=== PATIENT | male | born 1950 | race Caucasian/White ===

== ENCOUNTER 2022-10-04 15:27 | Emergency (ER) | payer MEDICARE, BC, SELFPAY ==
[2022-10-04] VITALS (22 sets, daily range): BP systolic 119–146; BP diastolic 72–107; PULSE 62–100; RESP 20; TEMP 37.6; O2SAT 95–99; BMI 28.3
--- NOTE | 2022-10-04 16:01 | CRLHL7_ITS ---
For Patients: As a result of the Century Cures Act, medical imaging exams and procedure reports are released immediately into your electronic medical record. You may view this report before your referring provider. If you have questions, please contact your health care provider. Indication: Chest pain Comparison: None available. Technique: PA and lateral views of the chest Findings: Mild hyperinflation and chronic interstitial change without evidence of dense consolidation, effusion or pneumothorax. There is minimal basilar atelectasis and parenchymal scar. Cardiac silhouette is mildly prominent with minimal aortic tortuosity. The bony thorax is grossly intact. Impression: Hyperinflation and chronic interstitial change without acute cardiopulmonary abnormality. Dictated by Jeremy Oleary MD @ 10/04/2022 5:02:22 PM (Electronically Signed)
--- NOTE | 2022-10-04 16:11 | ED.CHESTPAIN ---
HPI - Chest Pain General Date Seen: 10/04/22 <Emeka Rendon MD - Last Filed: 10/06/22 13:38> Chief Complaint: Chest Pain <Emeka Rendon MD - Last Filed: 10/06/22 13:38> Stated Complaint: chest pain, chill <Emeka Rendon MD - Last Filed: 10/06/22 13:38> Time Seen by Provider: 10/04/22 16:01 <Emeka Rendon MD - Last Filed: 10/06/22 13:38> Source: patient and family <Emeka Rendon MD - Last Filed: 10/06/22 13:38> Mode of arrival: ambulatory <Emeka Rendon MD - Last Filed: 10/06/22 13:38> Limitations: no limitations <Emeka Rendon MD - Last Filed: 10/06/22 13:38> History of Present Illness HPI narrative: Patient is a 9-year-old gentleman who presents here with his ambulatory for a chest discomfort, the chest discomfort is been for the last 3 weeks, he describes across his anterior chest, with no radiation anywhere else. He describes as pressure, and some pain. He feels very winded and shortness of breath and can walk only approximately 50 ft then will stop nap using a minute to 2 can walk further. He has noted he has had this in the past, but not nearly this bad. He told his today that he thinks he needs to go to the hospital, he has appointment to see Wilber Paredes MD to her next week. 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 Denies a past history of cardiac issues, no history of hypertension, smoking, diabetes, or hyperlipidemia. Not really been to a doctor last 15 years. Grandfather of an MD age 70. Nonsmoker lifetime, no alcohol. <Emeka Rendon MD - Last Filed: 10/06/22 13:38> MD complaint: chest pain and chest heaviness <Emeka Rendon MD - Last Filed: 10/06/22 13:38> Onset (ago): week(s) <Emeka Rendon MD - Last Filed: 10/06/22 13:38> Timing of current episode: episodic <Emeka Rendon MD - Last Filed: 10/06/22 13:38> Prior episodes: Yes <Emeka Rednon MD - Last Filed: 10/06/22 13:38> Onset: during exertion <Emeka Rendon MD - Last Filed: 10/06/22 13:38> Pain location: substernal, left chest and parasternal <Emeka Rendon MD - Last Filed: 10/06/22 13:38> Pain radiation: none <Emeka Rendon MD - Last Filed: 10/06/22 13:38> Severity: moderate <Emeka Rendon MD - Last Filed: 10/06/22 13:38> Quality: tightness and heaviness <Emeka Rendon MD - Last Filed: 10/06/22 13:38> Relieving factors: rest <Emeka Rendon MD - Last Filed: 10/06/22 13:38> Exacerbating factors: exertion <Emeka Rendon MD - Last Filed: 10/06/22 13:38> Treatment prior to arrival: none <Emeka Rendon MD - Last Filed: 10/06/22 13:38> Risk Factors Coronary artery disease risk factors: none <Emeka Rendon MD - Last Filed: 10/06/22 13:38> Thoracic aortic dissection risk factors: none <Emeka Rendon MD - Last Filed: 10/06/22 13:38> Related Data Home Medications: Previous Rx's Medication Instructions Recorded metoprolol succinate 25 mg 25 mg PO DAILY #30 tabs 10/04/22 tablet,extended release 24 hr nitroglycerin 0.4 mg sublingual 0.4 mg sublingual Q5-15M PRN chest 10/04/22 tablet pain #25 tabs <Emeka Rendon MD - Last Filed: 10/06/22 13:38> Allergies/Adverse Reactions: Allergies Allergy/AdvReac Type Severity Reaction Status Date / Time Penicillins Allergy Verified 10/04/22 15:35 <Emeka Rendon MD - Last Filed: 10/06/22 13:38> Review of Systems Status of ROS Reports: 10 or more systems reviewed and unremarkable except as noted in History and below <Emeka Rendon MD - Last Filed: 10/06/22 13:38> [facility] Social History: Social History Smoking Status: Never smoker Do you use any of these nicotine containing products: None Second hand tobacco smoke exposure: No How often do you have a drink containing alcohol: 2-4 times a month How many standard drinks containing alcohol do you have on a typical day: 1 or 2 How often do you have six or more drinks on one occasion: Never AUDIT-C Alcohol total score: 2 Non-prescribed substance use: denies use service: Yes <Emeka Rendon MD - Last Filed: 10/06/22 13:38> Exam Narrative Exam Narrative: Patient is seen in room 7 he appears to be in no apparent distress, pleasant along with his . Patient is speaking normally, no problem with slurring words, oriented x3. Head eyes ears nose and throat exam show equal pupils, no scleral icterus, extraocular muscles are normal, no facial droop, speech is normal, trachea normal and midline. Thyroid normal midline palpable not enlarged. Chest shows symmetrical rise bilaterally, normal auscultation with no wheezes, no increased work of breathing, no overt bruising or lesions seen, no tenderness is noted on auscultation. Heart sounds normal with no S3-S4 no murmurs clicks or gallops. Abdomen shows no obvious masses or hepatosplenomegaly, no organomegaly, bowel sounds are normal in all quadrants. No tenderness is noted also in all quadrants. Upper and lower extremities show normal power, normal range of motion, pulses are normal, sensations normal, fine motor movements are normal, pelvis is stable to rocking. Cervical spine shows normal range of motion, and palpably not tender. Thoracic spine shows normal range of motion, and palpably not tender, lumbar spine shows no tenderness to palpation percussion and is otherwise normal range of motion. Skin shows no rashes, petechiae or eccymosis. Deformity of the left 5th finger, consistent with the previous fracture osteoarthritis notable of all the MCPs of both hands. He has normal pulses in his DP and posterior tibial pie laterally notable, with absence of edema, and no negative Homans sign. <Emeka Rendon MD - Last Filed: 10/06/22 13:38> Const Vital Signs, click to edit/add: Vital Signs - 24 hr 10/04/22 15:36 10/04/22 15:53 10/04/22 16:00 Temperature 99.6 F Pulse Rate 100 93 Pulse Rate [Pulse Oximeter] 95 Respiratory Rate 20 Blood Pressure Blood Pressure [Left Upper Arm] 146/89 H Pulse Oximetry 97 97 Oxygen Delivery Method Room Air 10/04/22 16:15 10/04/22 16:30 10/04/22 16:32 Temperature Pulse Rate 92 81 81 Pulse Rate [Pulse Oximeter] Respiratory Rate Blood Pressure 132/81 Blood Pressure [Left Upper Arm] Pulse Oximetry 97 97 98 Oxygen Delivery Method 10/04/22 16:45 10/04/22 17:00 10/04/22 17:02 Temperature Pulse Rate 84 78 80 Pulse Rate [Pulse Oximeter] Respiratory Rate Blood Pressure 119/72 Blood Pressure [Left Upper Arm] Pulse Oximetry 96 96 96 Oxygen Delivery Method 10/04/22 17:15 10/04/22 17:30 10/04/22 17:32 Temperature Pulse Rate 66 81 75 Pulse Rate [Pulse Oximeter] Respiratory Rate Blood Pressure 128/73 Blood Pressure [Left Upper Arm] Pulse Oximetry 96 99 97 Oxygen Delivery Method 10/04/22 17:33 10/04/22 17:52 10/04/22 18:00 Temperature Pulse Rate 74 83 62 Pulse Rate [Pulse Oximeter] Respiratory Rate Blood Pressure Blood Pressure [Left Upper Arm] Pulse Oximetry 98 98 98 Oxygen Delivery Method 10/04/22 18:02 10/04/22 18:15 10/04/22 18:30 Temperature Pulse Rate 75 66 Pulse Rate [Pulse Oximeter] Respiratory Rate Blood Pressure 123/81 Blood Pressure [Left Upper Arm] Pulse Oximetry 98 98 Oxygen Delivery Method 10/04/22 18:32 10/04/22 18:45 10/04/22 19:00 Temperature Pulse Rate 66 81 74 Pulse Rate [Pulse Oximeter] Respiratory Rate Blood Pressure 128/72 Blood Pressure [Left Upper Arm] Pulse Oximetry 97 97 95 Oxygen Delivery Method 10/04/22 19:03 Temperature Pulse Rate 80 Pulse Rate [Pulse Oximeter] Respiratory Rate Blood Pressure 125/107 H Blood Pressure [Left Upper Arm] Pulse Oximetry 97 Oxygen Delivery Method <Emeka Rendon MD - Last Filed: 10/06/22 13:38> Vital Signs - 24 hr 10/04/22 15:36 10/04/22 15:53 10/04/22 16:00 Temperature 99.6 F Pulse Rate 100 93 Pulse Rate [Pulse Oximeter] 95 Respiratory Rate 20 Blood Pressure Blood Pressure [Left Upper Arm] 146/89 H Pulse Oximetry 97 97 Oxygen Delivery Method Room Air 10/04/22 16:15 10/04/22 16:30 10/04/22 16:32 Temperature Pulse Rate 92 81 81 Pulse Rate [Pulse Oximeter] Respiratory Rate Blood Pressure 132/81 Blood Pressure [Left Upper Arm] Pulse Oximetry 97 97 98 Oxygen Delivery Method 10/04/22 16:45 10/04/22 17:00 10/04/22 17:02 Temperature Pulse Rate 84 78 80 Pulse Rate [Pulse Oximeter] Respiratory Rate Blood Pressure 119/72 Blood Pressure [Left Upper Arm] Pulse Oximetry 96 96 96 Oxygen Delivery Method 10/04/22 17:15 10/04/22 17:30 10/04/22 17:32 Temperature Pulse Rate 66 81 75 Pulse Rate [Pulse Oximeter] Respiratory Rate Blood Pressure 128/73 Blood Pressure [Left Upper Arm] Pulse Oximetry 96 99 97 Oxygen Delivery Method 10/04/22 17:33 10/04/22 17:52 10/04/22 18:00 Temperature Pulse Rate 74 83 62 Pulse Rate [Pulse Oximeter] Respiratory Rate Blood Pressure Blood Pressure [Left Upper Arm] Pulse Oximetry 98 98 98 Oxygen Delivery Method 10/04/22 18:02 10/04/22 18:15 10/04/22 18:30 Temperature Pulse Rate 75 66 Pulse Rate [Pulse Oximeter] Respiratory Rate Blood Pressure 123/81 Blood Pressure [Left Upper Arm] Pulse Oximetry 98 98 Oxygen Delivery Method 10/04/22 18:32 10/04/22 18:45 10/04/22 19:00 Temperature Pulse Rate 66 81 74 Pulse Rate [Pulse Oximeter] Respiratory Rate Blood Pressure 128/72 Blood Pressure [Left Upper Arm] Pulse Oximetry 97 97 95 Oxygen Delivery Method 10/04/22 19:03 Temperature Pulse Rate 80 Pulse Rate [Pulse Oximeter] Respiratory Rate Blood Pressure 125/107 H Blood Pressure [Left Upper Arm] Pulse Oximetry 97 Oxygen Delivery Method <Destiny Swenson MD - Last Filed: 10/04/22 20:51> Documenting provider has reviewed patient's vital signs: yes <Emeka Rendon MD - Last Filed: 10/06/22 13:38> Course Reevaluation(s) Reevaluation #1: Reviewed with patient that his D-dimer is mildly elevated. When he did have the chest pain, he would feel short of breath. He is currently asymptomatic. Can not really tell me when the last time he had the pain was at this point. Reviewed entities such as dissection and aneurysms, pulmonary emboli. We will be doing a chest CT PE protocol next. Will do a follow-up troponin and likely talk to Cardiology once I have my chest CT back. <Destiny Swenson MD - Last Filed: 10/04/22 20:51> Time: 17:23 <Destiny Swenson MD - Last Filed: 10/04/22 20:51> Reevaluation #2: Reviewed patient's chest CT PE protocol with him. There is no pulmonary emboli, no acute intrathoracic abnormality. Unfortunately, there is an incompletely visualized right kidney and they do see hydronephrosis. Patient is going to have a CT of his abdomen, will collect urinalysis. We will not be able to do with contrast but given he has not had any medical care for years, do feel that is appropriate that we work this up further here. His troponin has been normal, there other abnormalities seen with his labs that may point to a different direction rather than cardiac disease. I do agree with Dr. Braxton though that the history really sounds like it could be angina. <Destiny Swenson MD - Last Filed: 10/04/22 20:51> Time: 18:41 <Destiny Swenson MD - Last Filed: 10/04/22 20:51> Reevaluation #3: PVR is only 1ml, no retention found. Awaiting to talk to cardiology regarding this patient. Will be reviewing CT abdomen with them as well. Reviewed that there is dilation of the right ureter, could certainly be a chronic finding, can be further worked up outpatient if felt necessary. His kidney function and urinalysis are not concerning at this time. As far as his chest symptoms, reviewed that with the lack of Cardiology hospital beds, his stability of his troponins, it is not likely that we will find hospitalization. I am going to start him on metoprolol XL 25 mg, give a dose here tonight. He understands that I am going to talk to Cardiology, come up with a plan for outpatient. We can schedule a stress test and would likely do a Lexiscan walking. Will review this with Cardiology. They state that they have an appointment with Dr. Nuñez this coming Monday at 4:00 p.m.. There are advised to keep that appointment. <Destiny Swenson MD - Last Filed: 10/04/22 20:51> Time: 20:25 <Destiny Swenson MD - Last Filed: 10/04/22 20:51> Consultations Consultation #1: Has spoken with Dr. Rodgers oral Cardiology from [facility] [place]. Reviewed the case. He recommended metoprolol and was in agreement with that. He recommended sublingual nitroglycerin in lieu of Imdur. He recommended doing a nuclear treadmill. I did order this. Patient will be discharged to home for further outpatient evaluation and management as there is no capacity for inpatient hospitalization. <Destiny Swenson MD - Last Filed: 10/04/22 20:51> Time: 20:50 <Destiny Swenson MD - Last Filed: 10/04/22 20:51> Vital Signs Vital signs: Initial Vital Signs Temperature 99.6 F 10/04/22 15:36 Temperature Source Temporal Artery Scan 10/04/22 15:36 Pulse Rate 95 10/04/22 15:36 Pulse Rhythm 10/04/22 15:36 Respiratory Rate 20 10/04/22 15:36 Blood Pressure 146/89 H 10/04/22 15:36 Blood Pressure Mean 108 10/04/22 15:36 Blood Pressure Position Supine 10/04/22 15:36 Oxygen Delivery Method 10/04/22 15:36 Vital Signs Temperature 99.6 F 10/04/22 15:36 Pulse Rate 95 10/04/22 15:36 Respiratory Rate 20 10/04/22 15:36 Blood Pressure 146/89 H 10/04/22 15:36 Oxygen Delivery Method 10/04/22 15:36 Temperature 99.6 F 10/04/22 15:36 Pulse Rate 80 10/04/22 19:03 Respiratory Rate 20 10/04/22 15:36 Blood Pressure 125/107 H 10/04/22 19:03 Pulse Oximetry 97 10/04/22 19:03 Oxygen Delivery Method 10/04/22 15:36 <Emeka Rendon MD - Last Filed: 10/06/22 13:38> Initial Vital Signs Temperature 99.6 F 10/04/22 15:36 Temperature Source Temporal Artery Scan 10/04/22 15:36 Pulse Rate 95 10/04/22 15:36 Pulse Rhythm 10/04/22 15:36 Respiratory Rate 20 10/04/22 15:36 Blood Pressure 146/89 H 10/04/22 15:36 Blood Pressure Mean 108 10/04/22 15:36 Blood Pressure Position Supine 10/04/22 15:36 Oxygen Delivery Method 10/04/22 15:36 Vital Signs Temperature 99.6 F 10/04/22 15:36 Pulse Rate 95 10/04/22 15:36 Respiratory Rate 20 10/04/22 15:36 Blood Pressure 146/89 H 10/04/22 15:36 Oxygen Delivery Method 10/04/22 15:36 Temperature 99.6 F 10/04/22 15:36 Pulse Rate 80 10/04/22 19:03 Respiratory Rate 20 10/04/22 15:36 Blood Pressure 125/107 H 10/04/22 19:03 Pulse Oximetry 97 10/04/22 19:03 Oxygen Delivery Method 10/04/22 15:36 <Destiny Swenson MD - Last Filed: 10/04/22 20:51> MDM - Chest Pain MDM Narrative Medical decision making narrative: During the evaluation of this patient I considered multiple differential diagnosis is. The life-threatening differential diagnosis include coronary disease/MD, pulmonary embolism, pneumothorax, pneumonia, and aortic dissection. Other differential diagnosis included but were not limited to pericarditis, myocarditis, chest wall pain, GERD, esophageal rupture, rib fracture contusion, pleurisy, as well as other etiologies. I discussed with him that this story is consistent with angina at least 2 more likely unstable angina, we should do a workup for this and he is in agreement, I will have him see the oncoming ER physician <Emeka Rendon MD - Last Filed: 10/06/22 13:38> Differential Diagnosis Differential diagnosis: Likely stable angina, unstable angina pectoris, atypical chest pain and chest pain <Emeka Rendon MD - Last Filed: 10/06/22 13:38> Lab Data Attestation: I reviewed the patient's lab results. <Destiny Swenson MD - Last Filed: 10/04/22 20:51> Labs: Lab Results 10/04/22 10/04/22 10/04/22 Range/Units 16:01 16:15 16:15 WBC 10.42 (4.50-11.00) K/uL RBC 4.35 (4.30-5.90) m/uL Hgb 12.5 L (13.5-17.5) gm/dL Hct 36.9 L (37.0-53.0) % MCV 85 (80-100) fL MCH 29 (26-34) pg MCHC 34 (32-36) gm/dL RDW Coeff of Maik 12.6 (11.5-15.5) % Plt Count 284 (140-440) K/uL Neut % (Auto) 76.5 H (42.0-72.0) % Lymph % (Auto) 14.2 L (20-44) % [place] % (Auto) 7.6 (0.0-11.0) % Eos % (Auto) 1.2 (0.0-7.0) % Baso % (Auto) 0.2 (0.0-3.0) % Neut # (Auto) 8.00 H (1.7-7.0) K/uL Lymph # (Auto) 1.50 (0.90-2.90) K/uL [place] # (Auto) 0.80 (0.00-0.90) K/UL Eos # (Auto) 0.13 (0.00-0.50) K/uL Baso # (Auto) 0.02 (0.00-0.30) K/uL INR 1.14 H (0.91-1.10) APTT 38 H (23-33) Seconds D-Dimer Quant (PE/DVT) 0.80 H (0.00-0.50) ug/ml Sodium (135-149) mmol/L Potassium (3.6-5.1) mmol/L Chloride (96-114) mmol/L Carbon Dioxide (20-32) mmol/L BUN (7-30) mg/dL Creatinine (0.5-1.5) mg/dL Estimated Creat Clear Estimated GFR ml/min Glucose (60-115) mg/dL Calcium (8.4-10.6) mg/dL Total Bilirubin (0.1-1.5) mg/dL AST (12-35) U/L ALT (4-50) U/L Alkaline Phosphatase (40-150) U/L Troponin I (0.01-0.04) ng/mL NT-Pro-B Natriuret Pep pg/mL Total Protein (6.0-8.3) g/dL Albumin (3.3-5.0) g/dL Urine Color (Yellow) Urine Appearance (Clear) Urine pH (5.0-8.5) Ur Specific [place] (1.000-1.030) Urine Protein (Negative) Urine Glucose (UA) (Negative) Urine Ketones (Negative) Urine Blood (Negative) Urine Nitrite (Negative) Urine Bilirubin (Negative) Urine Urobilinogen (0.2-1.0) Ur Leukocyte Esterase (Negative) Urine RBC (0-2) Urine WBC (0-5) Ur Squamous Epith Cells (None-Few) Urine Bacteria (None) SARS-CoV-2 (PCR) Negative SARS-CoV-2 (Negative) Influenza Type A (PCR) Negative PCR FLU A (Negative) Influenza Type B (PCR) Negative PCR FLU B (Negative) RSV (PCR) Negative PCR RSV (Negative) 10/04/22 10/04/22 10/04/22 Range/Units 16:15 19:04 19:15 WBC (4.50-11.00) K/uL RBC (4.30-5.90) m/uL Hgb (13.5-17.5) gm/dL Hct (37.0-53.0) % MCV (80-100) fL MCH (26-34) pg MCHC (32-36) gm/dL RDW Coeff of Maik (11.5-15.5) % Plt Count (140-440) K/uL Neut % (Auto) (42.0-72.0) % Lymph % (Auto) (20-44) % [place] % (Auto) (0.0-11.0) % Eos % (Auto) (0.0-7.0) % Baso % (Auto) (0.0-3.0) % Neut # (Auto) (1.7-7.0) K/uL Lymph # (Auto) (0.90-2.90) K/uL [place] # (Auto) (0.00-0.90) K/UL Eos # (Auto) (0.00-0.50) K/uL Baso # (Auto) (0.00-0.30) K/uL INR (0.91-1.10) APTT (23-33) Seconds D-Dimer Quant (PE/DVT) (0.00-0.50) ug/ml Sodium 137 (135-149) mmol/L Potassium 3.9 (3.6-5.1) mmol/L Chloride 105 (96-114) mmol/L Carbon Dioxide 26 (20-32) mmol/L BUN 14 (7-30) mg/dL Creatinine 0.8 (0.5-1.5) mg/dL Estimated Creat Clear 59.79 Estimated GFR 95 ml/min Glucose 116 H (60-115) mg/dL Calcium 8.2 L (8.4-10.6) mg/dL Total Bilirubin 0.9 (0.1-1.5) mg/dL AST 30 (12-35) U/L ALT 28 (4-50) U/L Alkaline Phosphatase 63 (40-150) U/L Troponin I < 0.01 L < 0.01 L (0.01-0.04) ng/mL NT-Pro-B Natriuret Pep 1650 pg/mL Total Protein 6.5 (6.0-8.3) g/dL Albumin 3.6 (3.3-5.0) g/dL Urine Color Yellow (Yellow) Urine Appearance Clear (Clear) Urine pH 5.5 (5.0-8.5) Ur Specific [place] 1.010 (1.000-1.030) Urine Protein Negative (Negative) Urine Glucose (UA) Negative (Negative) Urine Ketones Negative (Negative) Urine Blood Negative (Negative) Urine Nitrite Negative (Negative) Urine Bilirubin Negative (Negative) Urine Urobilinogen 0.2 (0.2-1.0) Ur Leukocyte Esterase Trace A (Negative) Urine RBC 2-5 A (0-2) Urine WBC 10-25 A (0-5) Ur Squamous Epith Cells None (None-Few) Urine Bacteria None (None) SARS-CoV-2 (PCR) (Negative) Influenza Type A (PCR) (Negative) Influenza Type B (PCR) (Negative) RSV (PCR) (Negative) <Emeka Rendon MD - Last Filed: 10/06/22 13:38> Lab Results 10/04/22 10/04/22 10/04/22 Range/Units 16:01 16:15 16:15 WBC 10.42 (4.50-11.00) K/uL RBC 4.35 (4.30-5.90) m/uL Hgb 12.5 L (13.5-17.5) gm/dL Hct 36.9 L (37.0-53.0) % MCV 85 (80-100) fL MCH 29 (26-34) pg MCHC 34 (32-36) gm/dL RDW Coeff of Maik 12.6 (11.5-15.5) % Plt Count 284 (140-440) K/uL Neut % (Auto) 76.5 H (42.0-72.0) % Lymph % (Auto) 14.2 L (20-44) % [place] % (Auto) 7.6 (0.0-11.0) % Eos % (Auto) 1.2 (0.0-7.0) % Baso % (Auto) 0.2 (0.0-3.0) % Neut # (Auto) 8.00 H (1.7-7.0) K/uL Lymph # (Auto) 1.50 (0.90-2.90) K/uL [place] # (Auto) 0.80 (0.00-0.90) K/UL Eos # (Auto) 0.13 (0.00-0.50) K/uL Baso # (Auto) 0.02 (0.00-0.30) K/uL INR 1.14 H (0.91-1.10) APTT 38 H (23-33) Seconds D-Dimer Quant (PE/DVT) 0.80 H (0.00-0.50) ug/ml Sodium (135-149) mmol/L Potassium (3.6-5.1) mmol/L Chloride (96-114) mmol/L Carbon Dioxide (20-32) mmol/L BUN (7-30) mg/dL Creatinine (0.5-1.5) mg/dL Estimated Creat Clear Estimated GFR ml/min Glucose (60-115) mg/dL Calcium (8.4-10.6) mg/dL Total Bilirubin (0.1-1.5) mg/dL AST (12-35) U/L ALT (4-50) U/L Alkaline Phosphatase (40-150) U/L Troponin I (0.01-0.04) ng/mL NT-Pro-B Natriuret Pep pg/mL Total Protein (6.0-8.3) g/dL Albumin (3.3-5.0) g/dL Urine Color (Yellow) Urine Appearance (Clear) Urine pH (5.0-8.5) Ur Specific [place] (1.000-1.030) Urine Protein (Negative) Urine Glucose (UA) (Negative) Urine Ketones (Negative) Urine Blood (Negative) Urine Nitrite (Negative) Urine Bilirubin (Negative) Urine Urobilinogen (0.2-1.0) Ur Leukocyte Esterase (Negative) Urine RBC (0-2) Urine WBC (0-5) Ur Squamous Epith Cells (None-Few) Urine Bacteria (None) SARS-CoV-2 (PCR) Negative SARS-CoV-2 (Negative) Influenza Type A (PCR) Negative PCR FLU A (Negative) Influenza Type B (PCR) Negative PCR FLU B (Negative) RSV (PCR) Negative PCR RSV (Negative) 10/04/22 10/04/22 10/04/22 Range/Units 16:15 19:04 19:15 WBC (4.50-11.00) K/uL RBC (4.30-5.90) m/uL Hgb (13.5-17.5) gm/dL Hct (37.0-53.0) % MCV (80-100) fL MCH (26-34) pg MCHC (32-36) gm/dL RDW Coeff of Maik (11.5-15.5) % Plt Count (140-440) K/uL Neut % (Auto) (42.0-72.0) % Lymph % (Auto) (20-44) % [place] % (Auto) (0.0-11.0) % Eos % (Auto) (0.0-7.0) % Baso % (Auto) (0.0-3.0) % Neut # (Auto) (1.7-7.0) K/uL Lymph # (Auto) (0.90-2.90) K/uL [place] # (Auto) (0.00-0.90) K/UL Eos # (Auto) (0.00-0.50) K/uL Baso # (Auto) (0.00-0.30) K/uL INR (0.91-1.10) APTT (23-33) Seconds D-Dimer Quant (PE/DVT) (0.00-0.50) ug/ml Sodium 137 (135-149) mmol/L Potassium 3.9 (3.6-5.1) mmol/L Chloride 105 (96-114) mmol/L Carbon Dioxide 26 (20-32) mmol/L BUN 14 (7-30) mg/dL Creatinine 0.8 (0.5-1.5) mg/dL Estimated Creat Clear 59.79 Estimated GFR 95 ml/min Glucose 116 H (60-115) mg/dL Calcium 8.2 L (8.4-10.6) mg/dL Total Bilirubin 0.9 (0.1-1.5) mg/dL AST 30 (12-35) U/L ALT 28 (4-50) U/L Alkaline Phosphatase 63 (40-150) U/L Troponin I < 0.01 L < 0.01 L (0.01-0.04) ng/mL NT-Pro-B Natriuret Pep 1650 pg/mL Total Protein 6.5 (6.0-8.3) g/dL Albumin 3.6 (3.3-5.0) g/dL Urine Color Yellow (Yellow) Urine Appearance Clear (Clear) Urine pH 5.5 (5.0-8.5) Ur Specific [place] 1.010 (1.000-1.030) Urine Protein Negative (Negative) Urine Glucose (UA) Negative (Negative) Urine Ketones Negative (Negative) Urine Blood Negative (Negative) Urine Nitrite Negative (Negative) Urine Bilirubin Negative (Negative) Urine Urobilinogen 0.2 (0.2-1.0) Ur Leukocyte Esterase Trace A (Negative) Urine RBC 2-5 A (0-2) Urine WBC 10-25 A (0-5) Ur Squamous Epith Cells None (None-Few) Urine Bacteria None (None) SARS-CoV-2 (PCR) (Negative) Influenza Type A (PCR) (Negative) Influenza Type B (PCR) (Negative) RSV (PCR) (Negative) <Destiny Swenson MD - Last Filed: 10/04/22 20:51> Imaging Data Chest x-ray: Attestation: I have reviewed the pertinent imaging results. <Destiny Swenson MD - Last Filed: 10/04/22 20:51> My impression: Do not appreciate any acute infiltrate, no acute pathology on my preliminary review. Await Radiology over-read. <Destiny Swenson MD - Last Filed: 10/04/22 20:51> Radiologist's impression: Patient: HITESH RIGGINS Facility:?[facility] Patient ID:?[id number] Site Patient ID:?[id number]. Site :?[id number] Study:?XRay Chest 2 VIEW-10/04/2022 4:44:26 PM Ordering Physician:Nino Hendrickson Final Report: Indication: Chest pain Comparison: None available. Technique: PA and lateral views of the chest Findings: Mild hyperinflation and chronic interstitial change without evidence of dense consolidation, effusion or pneumothorax. There is minimal basilar atelectasis and parenchymal scar. Cardiac silhouette is mildly prominent with minimal aortic tortuosity. The bony thorax is grossly intact. Impression: Hyperinflation and chronic interstitial change without acute cardiopulmonary abnormality. Dictated by Jeremy Oleary MD @ 10/04/2022 5:02:22 PM (Electronic Signature) <Destiny Swenson MD - Last Filed: 10/04/22 20:51> CT scan - chest: Attestation: I have reviewed the pertinent imaging results. <Destiny Swenson MD - Last Filed: 10/04/22 20:51> Radiologist's impression: Patient: HITESH RIGGINS Facility:?[facility] Patient ID:?[id number] Site Patient ID:?[id number]. Site :?[id number] Study:?CT Chest Angio PE PROTOCOL-10/04/2022 5:59:27 PM Ordering Physician:Angeline Dixon Final Report: INDICATION: Chest pain, shortness of breath. TECHNIQUE: CT chest PE was acquired with 95 cc Isovue 370 IV contrast. COMPARISON: Chest radiographs 10/04/2022. FINDINGS: Heart and vasculature: Contrast opacification of the pulmonary arterial tree is adequate. No sign of pulmonary embolism. Heart size is normal. Thoracic aorta and pulmonary artery are normal in caliber. Minimal coronary artery calcifications. Lungs and pleura: Mild osteophyte related fibrosis in the medial right lower lobe. Few linear parenchymal bands, likely representing subsegmental atelectasis/scarring. No suspicious nodules or infiltrates. No pleural effusions, pleural thickening, or pneumothorax. Lymph nodes/mediastinum: No mediastinal, hilar, or axillary adenopathy. Thyroid gland is unremarkable. 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 Chest wall: No masses. Upper abdomen: Partially visualized right hydronephrosis. Bones: Degenerative changes of the spine. IMPRESSION: 1. No evidence of pulmonary embolism or acute intrathoracic abnormality. 2. Partially visualized right hydronephrosis. Please note that all CT scans at this facility use dose modulation, iterative reconstruction, and/or weight-based dosing when appropriate to reduce radiation dose to as low as reasonably achievable. Dictated by Jimi Pimentel MD @ 10/04/2022 6:28:33 PM (Electronic Signature) <Destiny Swenson MD - Last Filed: 10/04/22 20:51> CT scan - abdomen: Attestation: I have reviewed the pertinent imaging results. <Destiny Swenson MD - Last Filed: 10/04/22 20:51> My impression: See enlarged right ureter on the CT. Will await Radiology over-read. <Destiny Swenson MD - Last Filed: 10/04/22 20:51> Radiologist's impression: Patient: HITESH RIGGINS Facility:?[facility] Patient ID:?[id number] Site Patient ID:?[id number]. Site :?[id number] Study:?CT Abdomen/Pelvis W/O CONTRAST-10/04/2022 7:13:00 PM Ordering Physician:Angeline Dixon Final Report: INDICATION: Right hydronephrosis seen on chest CT. TECHNIQUE: CT abdomen and pelvis without contrast. COMPARISON: None. FINDINGS: Lower chest: Scattered atelectasis. Similar prominent cystic structure in the retrocrural space Liver: Normal in size and attenuation. No suspicious masses. Gallbladder and bile ducts: No stones or inflammation. No biliary dilatation. Pancreas: Unremarkable. No mass or inflammation. Spleen: Normal in size. No masses. Adrenal glands: Normal in size. No nodules. Kidneys: Moderate to severe right-sided hydroureteronephrosis with tortuous course of the ureter without definite obstructing stone. Some narrowing of the right UVJ (series 2/image 101). Multiple left-sided renal sinus cysts. GI tract: Unremarkable. Normal in caliber. No sign of mass or inflammation. Normal appendix. Vasculature: Abdominal aorta is normal in caliber. Lymph nodes: No lymphadenopathy. Peritoneum/Abdominal Wall: Small fat containing umbilical hernia. No sign of mass or infiltration. No free air or significant free fluid. Pelvis: Moderately distended bladder with contrast. Bones: Degenerative changes. Bilateral L5 pars defects with minimal anterolisthesis of L5 on S1. IMPRESSION: Moderate to severe right-sided hydroureteronephrosis with tortuous course of the right ureter to the level of the UVJ without obstructing stone or mass. Some narrowing of the right UVJ which could suggest stricture, although vesicoureteral reflux not excluded. In the absence of acute kidney injury and pain, this could potentially be a chronic finding. Recommend correlation with renal function test. Please note that all CT scans at this facility use dose modulation, iterative reconstruction, and/or weight-based dosing when appropriate to reduce radiation dose to as low as reasonably achievable. Dictated by Zhao Garcia MD @ 10/04/2022 7:45:40 PM (Electronic Signature) <Destiny Swenson MD - Last Filed: 10/04/22 20:51> ECG Data Attestation: I personally reviewed and interpreted this ECG as follows: (Sinus rhythm with PVCs, 100 beats per minute. No definitive ischemia on my review.) <Destiny Swenson MD - Last Filed: 10/04/22 20:51> ECG interpretation date: 10/04/22 <Destiny Swenson MD - Last Filed: 10/04/22 20:51> ECG interpretation time: 17:20 <Destiny Swenson MD - Last Filed: 10/04/22 20:51> Prior ECG tracings: not available for review <Destiny Swenson MD - Last Filed: 10/04/22 20:51> Interpretation: Followup EKG timed 7:44 p.m. shows normal sinus rhythm, 80 beats per minute. No acute ischemic change. <Destiny Swenson MD - Last Filed: 10/04/22 20:51> Discharge Plan Discharge Clinical Impression: Hydronephrosis of right kidney, Hydroureter on right, Chest pain <Emeka Rendon MD - Last Filed: 10/06/22 13:38> Patient Disposition: Home, Self-Care <Emeka Renodn MD - Last Filed: 10/06/22 13:38> Condition: Stable <Emeka Rendon MD - Last Filed: 10/06/22 13:38> Instructions: Coronary Artery Disease (DC), Chest Pain (ED) <Emeka Rendon MD - Last Filed: 10/06/22 13:38> Additional Instructions: Need to take an 81 mg aspirin daily. You did get aspirin while you are in the ER, next dose should be given tomorrow. Start taking metoprolol XL 25 mg daily, next dose tomorrow night. We are prescribing sublingual nitroglycerin 0.4 mg to be taken under your tongue should you have chest pain. Please take this sitting down as it can drop people's blood pressure. If you are continuing to have ongoing chest pain, need to return to the ER for further evaluation. Certainly if you are having increasing symptoms of chest pain, difficulty breathing, shortness of breath or sense of rapid heart rate, recommend ER evaluation. Otherwise please keep your appointment in clinic for next week. It is fine to use Tylenol as you have been with these medicines. I have ordered a stress test and you will be contacted when this is approved, it will be scheduled after approval is done. I would recommend trying to minimize physical exertion until you have had further workup for this chest pain which is concerning for angina. <Emeka Rendon MD - Last Filed: 10/06/22 13:38> Activity Level: Activity as Tolerated <Emeka Rendon MD - Last Filed: 10/06/22 13:38> Activity as Tolerated <Destiny Swenson MD - Last Filed: 10/04/22 20:51> Discharge Diet: Regular <Emeka Rendon MD - Last Filed: 10/06/22 13:38> Regular <Destiny Swenson MD - Last Filed: 10/04/22 20:51> Prescriptions: New metoprolol succinate 25 mg tablet extended release 24 hr 25 mg PO DAILY Qty: 30 1RF nitroglycerin 0.4 mg tablet, sublingual 0.4 mg sublingual Q5-15M PRN (Reason: chest pain) Qty: 25 1RF Rx Instructions: do not exceed 3 doses per episode <Emeka Rendon MD - Last Filed: 10/06/22 13:38> Follow Up/Referrals: Thomas Nuñez MD [Primary Care Provider] - <Emeka Rendon MD - Last Filed: 10/06/22 13:38> Stand Alone Forms: [facility] Info Instructions <Emeka Rendon MD - Last Filed: 10/06/22 13:38>
[2022-10-04 16:24] LABS: Basophils Absolute Auto 0.02 K/uL (0.00-0.30); Basophils Percent Auto 0.2 % (0.0-3.0); Eosinophils Absolute Auto 0.13 K/uL (0.00-0.50); Eosinophils Percent Auto 1.2 % (0.0-7.0); Hematocrit 36.9 % (37.0-53.0); Hemoglobin* 12.5 gm/dL (13.5-17.5); Immature Granulocytes Abs Auto 0.03 K/uL (0.00-0.30); Immature Granulocytes Pct Auto 0.3 %; Lymphocytes Percent Auto 14.2 % (20-44); Mean Corpuscular HGB Conc 34 gm/dL (32-36); Mean Corpuscular Hemoglobin 29 pg (26-34); Mean Corpuscular Volume 85 fL (80-100); Monocytes Percent Auto 7.6 % (0.0-11.0); Neutrophils Percent Auto 76.5 % (42.0-72.0); Platelet Count* 284 K/uL (140-440); RDW Coefficient of Variation % 12.6 % (11.5-15.5); Red Blood Count 4.35 m/uL (4.30-5.90); White Blood Count* 10.42 K/uL (4.50-11.00)
[2022-10-04] MEDS: ASPIRIN 81 MG TAB.CHEW 324 MG PO (16:26)
[2022-10-04 16:27] LABS: Slide Review Reflex No
[2022-10-04 16:42] LABS: INR 1.14 (0.91-1.10); Prothrombin Time 15.3 Seconds
[2022-10-04 16:43] LABS: Partial Thromboplastin Time* 38 Seconds (23-33)
[2022-10-04 16:51] LABS: NT Pro B Type NatriureticPept* 1650 pg/mL
[2022-10-04 16:54] LABS: Troponin I* < 0.01 ng/mL (0.01-0.04)
[2022-10-04 16:59] LABS: Albumin* 3.6 g/dL (3.3-5.0); Chloride* 105 mmol/L (96-114); Potassium* 3.9 mmol/L (3.6-5.1); Sodium* 137 mmol/L (135-149)
[2022-10-04 17:00] LABS: PCR FLU A Negative PCR FLU A (Negative); PCR FLU B Negative PCR FLU B (Negative); PCR RSV Negative PCR RSV (Negative)
[2022-10-04 17:01] LABS: SARS PCR* Negative SARS-CoV-2 (Negative)
[2022-10-04 17:02] LABS: Alanine Aminotransferase* 28 U/L (4-50); Alkaline Phosphatase* 63 U/L (40-150); Aspartate Amino Transferase* 30 U/L (12-35); Bilirubin Total* 0.9 mg/dL (0.1-1.5); Blood Urea Nitrogen* 14 mg/dL (7-30); Carbon Dioxide* 26 mmol/L (20-32); Creatinine* 0.8 mg/dL (0.5-1.5); Est. Creatinine Clearance* 59.79; Estimated Glomerular Filt Rate 95 ml/min; Glucose* 116 mg/dL (60-115); Total Protein* 6.5 g/dL (6.0-8.3)
[2022-10-04 17:03] LABS: Calcium* 8.2 mg/dL (8.4-10.6)
--- NOTE | 2022-10-04 17:25 | CRLHL7_ITS ---
For Patients: As a result of the Century Cures Act, medical imaging exams and procedure reports are released immediately into your electronic medical record. You may view this report before your referring provider. If you have questions, please contact your health care provider. INDICATION: Chest pain, shortness of breath. TECHNIQUE: CT chest PE was acquired with 95 cc Isovue 370 IV contrast. COMPARISON: Chest radiographs 10/04/2022. FINDINGS: Heart and vasculature: Contrast opacification of the pulmonary arterial tree is adequate. No sign of pulmonary embolism. Heart size is normal. Thoracic aorta and pulmonary artery are normal in caliber. Minimal coronary artery calcifications. Lungs and pleura: Mild osteophyte related fibrosis in the medial right lower lobe. Few linear parenchymal bands, likely representing subsegmental atelectasis/scarring. No suspicious nodules or infiltrates. No pleural effusions, pleural thickening, or pneumothorax. Lymph nodes/mediastinum: No mediastinal, hilar, or axillary adenopathy. Thyroid gland is unremarkable. 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 Chest wall: No masses. Upper abdomen: Partially visualized right hydronephrosis. Bones: Degenerative changes of the spine. IMPRESSION: 1. No evidence of pulmonary embolism or acute intrathoracic abnormality. 2. Partially visualized right hydronephrosis. Please note that all CT scans at this facility use dose modulation, iterative reconstruction, and/or weight-based dosing when appropriate to reduce radiation dose to as low as reasonably achievable. Dictated by Jimi Pimentel MD @ 10/04/2022 6:28:33 PM (Electronically Signed)
--- NOTE | 2022-10-04 18:34 | CRLHL7_ITS ---
For Patients: As a result of the 21st Century Cures Act, medical imaging exams and procedure reports are released immediately into your electronic medical record. You may view this report before your referring provider. If you have questions, please contact your health care provider. INDICATION: Right hydronephrosis seen on chest CT. TECHNIQUE: CT abdomen and pelvis without contrast. COMPARISON: None. FINDINGS: Lower chest: Scattered atelectasis. Similar prominent cystic structure in the retrocrural space Liver: Normal in size and attenuation. No suspicious masses. Gallbladder and bile ducts: No stones or inflammation. No biliary dilatation. Pancreas: Unremarkable. No mass or inflammation. Spleen: Normal in size. No masses. Adrenal glands: Normal in size. No nodules. Kidneys: Moderate to severe right-sided hydroureteronephrosis with tortuous course of the ureter without definite obstructing stone. Some narrowing of the right UVJ (series 2/image 101). Multiple left-sided renal sinus cysts. GI tract: Unremarkable. Normal in caliber. No sign of mass or inflammation. Normal appendix. Vasculature: Abdominal aorta is normal in caliber. Lymph nodes: No lymphadenopathy. Peritoneum/Abdominal Wall: Small fat containing umbilical hernia. No sign of mass or infiltration. No free air or significant free fluid. Pelvis: Moderately distended bladder with contrast. Bones: Degenerative changes. Bilateral L5 pars defects with minimal anterolisthesis of L5 on S1. IMPRESSION: Moderate to severe right-sided hydroureteronephrosis with tortuous course of the right ureter to the level of the UVJ without obstructing stone or mass. Some narrowing of the right UVJ which could suggest stricture, although vesicoureteral reflux not excluded. In the absence of acute kidney injury and pain, this could potentially be a chronic finding. Recommend correlation with renal function test. Please note that all CT scans at this facility use dose modulation, iterative reconstruction, and/or weight-based dosing when appropriate to reduce radiation dose to as low as reasonably achievable. Dictated by Zhao Garcia MD @ 10/04/2022 7:45:40 PM (Electronically Signed)
[2022-10-04 19:22] LABS: Appearance Urine Clear (Clear); Bilirubin Urine Negative (Negative); Blood Urine Negative (Negative); Color Urine Yellow (Yellow); Glucose Urine Negative (Negative); Ketones Urine Negative (Negative); Leukocyte Esterase Urine Trace (Negative); Nitrite Urine Negative (Negative); Protein Urine Negative (Negative); Urobilinogen Urine 0.2 (0.2-1.0); pH Urine 5.5 (5.0-8.5)
[2022-10-04 19:51] LABS: Troponin I* < 0.01 ng/mL (0.01-0.04)
--- NOTE | 2022-10-04 20:25 | ED.NURSE ---
paged out cardiology at [facility] for a consult.
== END 2022-10-04 21:20 | disposition home or self-care (01) ==
PROVIDERS: Family Medicine; Emergency Provider Family Medicine; PCP Internal Medicine
DX: N13.30 Unspecified hydronephrosis (principal); R07.9 Chest pain, unspecified
CPT/HCPCS: 36415; 71046; 71260; 74176; 80053; 81001; 83880; 84484; 85025; 85379; 85610; 85730; 87086; 87502; 87634; 87635; 93005; 99284; 99285; A9270; Q9967

== ENCOUNTER 2022-10-10 16:24 | Outpatient (CLI) | payer MEDICARE, BC, SELFPAY | END 2022-10-10 16:25 | disposition home or self-care (01) | LOC: NFLDREF 10-14 09:42 | PROVIDERS: PCP Internal Medicine; Visit Provider Internal Medicine | DX: Z00.00 Encounter for general adult medical examination without abnormal findings (principal); N39.0 Urinary tract infection, site not specified | CPT/HCPCS: 87086; 87186 ==

== ENCOUNTER 2022-10-18 10:44 | Outpatient (CLI) | payer MEDICARE, BC, SELFPAY ==
[2022-10-18 12:31] VITALS: BP 169/99; PULSE 86
--- NOTE | 2022-10-18 18:08 | P.STN_ITS ---
Stress Test Note Date Time Seen by Provider: 11:59 Date Seen: 10/18/22 Date of test: 10/18/22 Providers Primary care provider: Thomas Nuñez Stress test physician: Destiny Swenson Stress Test Note Stress test ordered: Stress Myoview Indication for test: Chest pain Stress test medicine: None Results discussion: Resting EKG: Sinus rhythm, 86 beats per minute, PVC seen. Flipped T-waves lead V1. Resting blood pressure: 147/86 Patient exercise following Saul protocol on the treadmill. He was able to exercise to 3 minutes, stopping due to meeting his heart rate and becoming too short of breath to go on at the higher level. He did have some PVCs occ asionally seen but no arrhythmia. No EKG evidence of ischemia seen. He did have a hypertensive response to exercise with a blood pressure 182/92. Brief trigeminal rhythm seen at the end of her cover E. patient was asymptomatic. He achieved in equivalent of 4.6 mets. He exercised to a high rate of 141 beats per minute which was 110% of a target heart rate of 128. Unfortunately, the radioisotope infiltrated at the IV site and when post exercise images went to be obtained, no isotope was taken up, all was at the site of infiltration. Patient was offered to get scheduled to repeat the test, order a Lexiscan instead but he declined. Was reviewed with him that I did recommend him staying on the metoprolol for blood pressure control. He had reported no further chest pain in the interi Impression: Subjectively negative, objectively negative EKG portion of this stress test. Hypertensive response to exercise. Follow up suggested: He is going to get it scheduled to follow up in clinic. He understands that he will need further prescriptions for the metoprolol. He will need to get this through clinic and be followed. Do recommend consideration for repeating the 2nd portion of this stress test or ordering a Lexiscan in the future if needed.
== END 2022-10-18 10:45 | disposition home or self-care (01) ==
LOC: STRESS 10:46
PROVIDERS: PCP Internal Medicine; Visit Provider Family Medicine
DX: R07.9 Chest pain, unspecified (principal)
CPT/HCPCS: 78452; 93016; 93017; A9500

== ENCOUNTER 2022-10-23 16:29 | Emergency (ER) | payer MEDICARE, BC, SELFPAY ==
[2022-10-23 16:39] VITALS: BP 152/88; PULSE 82; RESP 18; TEMP 36.4; O2SAT 97
--- NOTE | 2022-10-23 17:19 | CRLHL7_ITS ---
For Patients: As a result of the Century Cures Act, medical imaging exams and procedure reports are released immediately into your electronic medical record. You may view this report before your referring provider. If you have questions, please contact your health care provider. HISTORY: Hematuria. Right hydronephrosis. TECHNIQUE: CT abdomen and pelvis without and with IV contrast, urogram protocol. 85 mL Isovue 370 IV. COMPARISON: CT abdomen and pelvis 10/04/2022. FINDINGS: Urinary tract: No renal or ureteral calculi. Kidneys enhance symmetrically. Small parapelvic renal cysts on the left. Moderate to severe hydroureteronephrosis on the right. Mild ureteral dilation on the left without caliceal dilation. No filling defects in the opacified portions of the collecting systems. Mild diffuse bladder wall thickening. Abdomen: A few subcentimeter hypodense lesions in the liver are too small to character, unchanged. No bile duct dilation. No pancreatic mass or pancreatic duct dilation. No spleen lesions. No adrenal nodules. No dilated bowel. No free fluid. No lymphadenopathy. Abdominal aorta is normal caliber. Mild atherosclerotic calcifications. Small fat containing umbilical hernia. Pelvis: No lymphadenopathy. Musculoskeletal: Degenerative changes of the spine, sacroiliac joints, and hips. Chronic bilateral pars defects at L5. Grade 2 anterolisthesis of L5 on S1. Lower chest: Cystic structure in the posterior mediastinum, likely a prominent cisterna chyli, unchanged. Minimal atelectasis in the lung bases. IMPRESSION: 1. Moderate to severe right hydroureteronephrosis. Mild ureteral dilation on the left without caliceal dilation. No change from comparison CT. No urinary tract calculi. No filling defects in the opacified portions of collecting systems. 3. Mild diffuse bladder wall thickening. Please note that all CT scans at this facility use dose modulation, iterative reconstruction, and/or weight-based dosing when appropriate to reduce radiation dose to as low as reasonably achievable. Dictated by Toni Harrison MD @ 10/23/2022 6:26:56 PM (Electronically Signed)
[2022-10-23 17:30] LABS: Bacteria Urine Few; RBC Urine >100 (0-2); WBC Urine 50-100 (0-5)
--- NOTE | 2022-10-23 23:10 | ED.GENADULT ---
HPI - General Adult General Date Seen: 10/23/22 Chief complaint: Urogenital Problems, Male Stated complaint: blood in urine Time Seen by Provider: 10/23/22 16:31 Source: patient and family Mode of arrival: ambulatory Limitations: no limitations History of Present Illness HPI narrative: Patient is a 72-year-old male who presents for evaluation of hematuria for the past several days. He notes some meatal discomfort which comes and goes, is sometimes fairly significant although right now he does not note any. He denies any abdominal or back pain. He has not had any fevers, weakness, nausea vomiting or chills. He notes that he was seen here a couple of weeks ago for chest pain, in the course of that workup had a CT scan and says he had ?fluid around his kidney. He has not had any further evaluation for that. He does not take any blood thinners. Denies previous history of kidney stones. Denies symptoms of urinary retention. The chest pain was worked up, he had a follow-up stress test which he says was unremarkable. The chest pain has since resolved. In the course of that he did start taking a baby aspirin. Related Data Previous Rx's Medication Instructions Recorded metoprolol succinate 25 mg 25 mg PO DAILY #30 tabs 10/04/22 tablet,extended release 24 hr nitroglycerin 0.4 mg sublingual 0.4 mg sublingual Q5-15M PRN chest 10/04/22 tablet pain #25 tabs Allergies Allergy/AdvReac Type Severity Reaction Status Date / Time Penicillins Allergy Intermediate fainted Verified 10/23/22 17:43 Review of Systems Status of ROS: Reports: 10 or more systems reviewed and unremarkable except as noted in History and below [facility] Medical History Urinary tract infection Social History Smoking Status: Former smoker Do you use any of these nicotine containing products: None Second hand tobacco smoke exposure: No How often do you have a drink containing alcohol: 2-4 times a month How many standard drinks containing alcohol do you have on a typical day: 1 or 2 How often do you have six or more drinks on one occasion: Never AUDIT-C Alcohol total score: 2 Non-prescribed substance use: denies use Little interest or pleasure in doing things: not at all Feeling down, depressed, or hopeless: not at all service: Yes Exam Const: Vital Signs, click to edit/add: Vital Signs - 24 hr 10/23/22 16:39 Temperature 97.6 F Pulse Rate [Left P ulse Oximeter] 82 Respiratory Rate 18 Blood Pressure [Ri ght Upper Arm] 152/88 H Pulse Oximetry 97 Oxygen Delivery Me thod Room Air Course Course Hospital Course: I ordered a urinalysis. He does have greater than 100 red blood cells and 25-50 white blood cells. This suggests probably an element of infection today. In reviewing his previous studies, he has significant hydronephrosis of the right kidney. The previous study was done after he had had a CT scan of the chest with contrast, so the renal pelvis, ureters and bladder are obscured by contrast. Today, I did a CT urogram, to evaluate for possible stone or other cause for hydronephrosis. This is read by Radiology as the following:IMPRESSION: 1. Moderate to severe right hydroureteronephrosis. Mild ureteral dilation on the left without caliceal dilation. No change from comparison CT. No urinary tract calculi. No filling defects in the opacified portions of collecting systems. 3. Mild diffuse bladder wall thickening. There is no evidence of stone on today's CT, and a clear cause for his hydronephrosis is not immediately evident. He does not show any signs a significant systemic illness today, but I have reviewed with him that if he develops any symptoms of fever, chills, weakness, or other worsening, he needs to come back to the ER right away. For now, I think it is reasonable to put him on antibiotics, and I have stressed the importance of urology follow-up in the very near future to evaluate further for the cause of his obstructive uropathy. Likewise, if he develops any symptoms of urinary retention, return to the ER. Vital Signs Vital signs: Initial Vital Signs Temperature 97.6 F 10/23/22 16:39 Temperature Source Temporal Artery Scan 10/23/22 16:39 Pulse Rate 82 10/23/22 16:39 Pulse Rhythm 10/23/22 16:39 Respiratory Rate 18 10/23/22 16:39 Blood Pressure 152/88 H 10/23/22 16:39 Blood Pressure Mean 109 10/23/22 16:39 Blood Pressure Position Semi-Fowlers 10/23/22 16:39 Pulse Oximetry 97 10/23/22 16:39 Oxygen Delivery Method 10/23/22 16:39 Vital Signs Temperature 97.6 F 10/23/22 16:39 Pulse Rate 82 10/23/22 16:39 Respiratory Rate 18 10/23/22 16:39 Blood Pressure 152/88 H 10/23/22 16:39 Pulse Oximetry 97 10/23/22 16:39 Oxygen Delivery Method 10/23/22 16:39 Temperature 97.6 F 10/23/22 16:39 Pulse Rate 82 10/23/22 16:39 Respiratory Rate 18 10/23/22 16:39 Blood Pressure 152/88 H 10/23/22 16:39 Pulse Oximetry 97 10/23/22 16:39 Oxygen Delivery Method 10/23/22 16:39 Medical Decision Making Lab Data Labs: Lab Results 10/23/22 Range/Units 16:45 Urine RBC >100 A (0-2) Urine WBC 50-100 A (0-5) Ur Squamous Epith Cells None (None-Few) Urine Bacteria Few A (None) Discharge Plan Discharge Clinical Impression: Urinary tract infection, Hydronephrosis Patient Disposition: Home, Self-Care Condition: Stable Instructions: Urinary Tract Infection in Men (DC), Hydronephrosis (ED) Additional Instructions: Take antibiotic as prescribed. If you develop any symptoms such as fever, abdominal pain, chills, vomiting, weakness, you should return right away for re-evaluation. Otherwise, follow-up with Urology as soon as possible. Call [phone] to schedule an appointment with [facility]. Prescriptions: No Action metoprolol succinate 25 mg tablet extended release 24 hr 25 mg PO DAILY Qty: 30 1RF nitroglycerin 0.4 mg tablet, sublingual 0.4 mg sublingual Q5-15M PRN (Reason: chest pain) Qty: 25 1RF Rx Instructions: do not exceed 3 doses per episode Follow Up/Referrals: Thomas Nuñez MD [Primary Care Provider] - Stand Alone Forms: [employer] Info Instructions
== END 2022-10-23 18:53 | disposition home or self-care (01) ==
PROVIDERS: Emergency Provider Emergency Medicine; PCP Internal Medicine
DX: N39.0 Urinary tract infection, site not specified (principal); N13.30 Unspecified hydronephrosis
CPT/HCPCS: 74178; 81001; 81015; 87086; 99284; 99285; Q9967

== ENCOUNTER 2022-11-15 07:57 | Outpatient (CLI) | payer MEDICARE, BC, SELFPAY ==
--- NOTE | 2022-11-15 08:30 | CRLHL7_ITS ---
For Patients: As a result of the Century Cures Act, medical imaging exams and procedure reports are released immediately into your electronic medical record. You may view this report before your referring provider. If you have questions, please contact your health care provider. [facility] ??? [facility] MYOCARDIAL PERFUSION SCAN, 11/15/2022 CLINICAL HISTORY: 72-year-old male. Chest pain. 170 pounds. Former smoker. Shortness of breath on exertion. TECHNIQUE: (Resting SPECT and stress gated SPECT with wall motion and ejection fraction) Stress: Pharmacologic ??? walking Lexiscan (0.4 mg IV) Dose (Stress/Rest): 32.4 mCi/7.94 mCi [id number] (IV) Comparison: None FINDINGS: There is good uptake of activity by the left ventricle. No left ventricular enlargement is noted. There is soft tissue attenuation. There is a small area of mild reversibility in the apical inferior wall. This is suspicious for mild ischemia. No other significant fixed or reversible defects are identified. The gated images demonstrate a normal left ventricular ejection fraction of 59%. No regional wall motion abnormalities are identified. IMPRESSION: 1) There is a small area of mild reversibility in the apical inferior wall. This is consistent with mild ischemia. 2) Normal left ventricular ejection fraction of 59%. DAY DORAN M.D. Diagnostic/Nuclear Medicine Radiologist [email or web address] Transcribed: 1:[address]/Dictated by: Day Doran MD @ 11/15/2022 12:29:00 PM (Electronically Signed)
[2022-11-15] MEDS: REGADENOSON 0.4 MG/5 ML SYRINGE IVP (09:46)
[2022-11-15 09:47] VITALS: BP 164/79; PULSE 104; RESP 16
[2022-11-15] MEDS: SODIUM CHLORIDE 0.9 % (FLUSH) 10 ML SYRINGE IVF (09:47)
--- NOTE | 2022-11-15 10:25 | W.PM.STED ---
Stress Test Note Date Date of test: 11/15/22 Providers Referring provider: Destiny Swenson Primary care provider: Thomas Nuñez Stress test physician: Emeka Rendon Stress Test Note Stress test ordered: Lexiscan Indication for test: Chest pain Stress test medicine: Lexiscan Results discussion: Patient is a very nice gentleman who presents for the above test after discussion the risks benefits and side effects he would like to proceed pretest EKG shows normal sinus rhythm, with a ventricular rate of 79, no acute ST wave changes, his blood pressure is 161/88. Standard walking protocol with Lexiscan is used over 5 minute. , he had no complications no shortness of breath no chest pain noted. Review of the tracing showed no dysrhythmias, no acute ST wave changes. He recovered normally in the recovery. Impression: Negative electrographic portion of Lexiscan Follow up suggested: Await nuclear images these will be read by Cardiology and nuclear Medicine, clinical correlation with these will be needed. Patient left this testing facility in excellent condition back to baseline. There were no complications.
== END 2022-11-15 10:40 | disposition home or self-care (01) ==
PROVIDERS: PCP Internal Medicine; Visit Provider Family Medicine
DX: R07.9 Chest pain, unspecified (principal)
CPT/HCPCS: 78452; 93016; 93017; A9500; J2785